=== PATIENT | male | born 1975 | race Caucasian/White ===

== ENCOUNTER 2021-02-20 01:46 | Emergency (ER) | payer BC, OTHER ==
[2021-02-20] MEDS ORDERED: Ketorolac 15 MG/ML SDV IM ONE (02:09)
--- NOTE | 2021-02-20 03:13 | EDM.PDOC ---
ED HPI GENERAL MEDICAL PROBLEM - General Chief Complaint: Back Pain or Injury Stated Complaint: PAIN IN BACK AND HIPS Time Seen by Provider: 02/20/21 02:05 - History of Present Illness INITIAL COMMENTS - FREE TEXT/NARRATIVE: CHIEF COMPLAINT(S): Back pain HISTORY OF PRESENT ILLNESS: This is a 45-year-old man without any significant past medical history who presents to the emergency department with a chief complaint of back pain. The patient states that he is experiencing 8 out of 10 lower back and hip pain which he describes as aching and worse with movement. He denies any radiation of this pain down his legs. He states that this started yesterday and does not know why it started initially. He has not yet tried anything for pain relief. He denies any bowel incontinence, urinary incontinence, saddle anesthesia. He denies any fever or chills. He denies any rash or redness. He denies any headache, trouble walking or trouble speaking. He denies any IV drug use. The pain is exacerbated by movement. There are no relieving factors. REVIEW OF SYSTEMS: Constitutional: Denies fever, chills. Eyes: Denies eye pain Ears, Nose, Mouth, & Throat: Denies earache Cardiovascular: Denies chest pain Respiratory: Denies shortness of breath Gastrointestinal: Denies Nausea, vomiting, diarrhea, hematochezia. Genitourinary: Denies hematuria Skin:Denies a rash MSK: Positive for lower back and hip pain Neurological: Denies blurred vision Psychiatric: Denies depression PAST MEDICAL HISTORY: As per history of present illness and as reviewed below otherwise noncontributory. SURGICAL HISTORY: As per history of present illness and as reviewed below otherwise noncontributory. SOCIAL HISTORY: As per history of present illness and as reviewed below otherwise noncontributory. FAMILY HISTORY: As per history of present illness and as reviewed below otherwise noncontributory. EXAMINATION OF ORGAN SYSTEMS/BODY AREAS: Constitutional: Blood pressure is 124/81, heart rate 85, respiratory rate 16 with an oxygen saturation of 95% on room air. Temperature 36.1 General: Young man who does not appear to be in acute distress Psychiatric: Appropriate mood and affect. Eyes: No scleral icterus or conjunctival erythema ENMT: Moist mucous membranes. No pharyngeal erythema Cardiovascular: Regular, rate, and rhythm. No gallops, murmurs, or rubs. Bilateral upper extremity pulses symmetric and intact. No peripheral edema. No JVD. Respiratory: Lungs clear to auscultation bilaterally. No wheezes, rales, or rhonchi. Gastrointestinal: Soft, non-tender, non-distended. Normoactive bowel sounds Genitourinary: No suprapubic tenderness Musculoskeletal: Normal range of motion. There is bilateral para spinal lumbar tenderness and bilateral gluteus tenderness. No midline lumbar, thoracic or cervical tenderness. Skin: No lesions or abrasions. Neurological: Alert, GCS 15 strength and sensation grossly intact in upper and lower extremities bilaterally MEDICAL DECISION MAKING AND COURSE IN THE ED WITH INTERPRETATION/REVIEW OF DIAGNOSTIC STUDIES: This is a 45-year-old man without any significant past medical history who presents to the emergency department with bilateral paraspinal muscle tenderness and gluteus tenderness. At this time I do believe this is muscle strain/lumbar strain. We will provide the patient with Toradol for pain relief and reevaluate. I do not believe any labs or imaging are indicated. The patient has no red flag symptoms. DDx: Lumbar strain, gluteus strain I did discuss strict return precautions with the patient and his at bedside. He did express understanding and had no further questions. Patient is amenable to discharge. DISPOSITION: The patient was discharged home in stable condition. The patient will follow up with primary care physician in 3 to 5 days CONDITION: Fair PROCEDURES: None FINAL IMPRESSION(S)/DIAGNOSES: 1. Acute musculoskeletal back pain Griffin Hernandez M.D. Bilateral Hip Pain Score (Numeric/FACES): 8 - Related Data Allergies Allergy/AdvReac Type Severity Reaction Status Date / Time amoxicillin Allergy Hives Verified 02/20/21 02:00 Home Meds: Home Meds Ibuprofen 600 mg PO Q6HR #28 tablet 02/20/21 [Rx] methIMAzole [Methimazole] 5 mg PO DAILY 02/20/21 [History] methocarbamoL [Methocarbamol] 1,500 mg PO TID #42 tablet 02/20/21 [Rx] Past Medical History HEENT History: Reports: Impaired Vision Endocrine/Metabolic History: Reports: Hypothyroidism - Infectious Disease History Infectious Disease History: Reports: Chicken Pox, Shingles Social & Family History - Recreational Drug Use Recreational Drug Use: Yes Drug Use in Last 12 Months: Yes Recreational Drug Type: Reports: Marijuana/Hashish Recreational Drug Use Frequency: Socially ED ROS GENERAL - Review of Systems Review Of Systems: See Below ED EXAM, GENERAL - Physical Exam Exam: See Below Course - Vital Signs Last Recorded V/S: Last Vital Signs Temp 36.1 C 02/20/21 02:01 Pulse 85 02/20/21 02:01 Resp 16 02/20/21 02:01 BP 124/81 02/20/21 02:01 Pulse Ox 95 02/20/21 02:01 - Orders/Labs/Meds Meds: Medications Discontinued Medications Generic Name Dose Route Start Last Admin Trade Name Rebecca PRN Reason Stop Dose Admin Ketorolac Tromethamine 15 mg 02/20/21 02:09 02/20/21 02:22 Ketorolac 15 Mg/Ml Sdv IM 02/20/21 02:10 15 mg ONETIME ONE Administration Departure - Departure Time of Disposition: 03:11 Disposition: Home, Self-Care 01 Condition: Fair Clinical Impression: Back strain - Discharge Information Prescriptions: Ibuprofen 600 mg PO Q6HR #28 tablet methocarbamoL [Methocarbamol] 1,500 mg PO TID #42 tablet Instructions: Muscle Strain, Iekz-no-Cigz, Back Injury Prevention Referrals: PCP,None [Primary Care Provider] - Forms: ED Department Discharge Additional Instructions: You were evaluated today on an emergent basis. At this time I do believe that your symptoms are likely due to muscle spasm versus strain. I do recommend that you apply a heating pad 20 minutes 4 times a day and use Tylenol and Motrin alternating around the clock. I recommend that you use Robaxin 3 times a day as prescribed and do the stretches that we had discussed. As discussed if you have any worsening symptoms such as urinating on yourself, defecating on yourself, fever or worsening back pain I would like you to return to the emergency department. Otherwise follow-up with primary care physician in 3 to 5 days for reevaluation Please use: Tylenol 500-1000mg every 6 hours (DO NOT TAKE MORE THAN 4000mg in 1 day) Ibuprofen 400mg-600mg every 6 hours (Take with food as it can cause ulcers, GI upset) Example schedule: 8:00 AM (Tylenol 500-1000mg) 11:00 AM (Ibuprofen 400mg) 2:00 PM (Tylenol 500-1000mg) 5:00 PM (Ibuprofen 400mg) In addition to Tylenol and Motrin you may use over the counter creams such as Voltaren Cream or Lidocaine Cream (Lidoderm) as needed 4 times a day for symptomatic relief. [facility] [address] [place] [address] [facility] [address] [place] [address] The patient is informed of any results of their evaluation and diagnostic workup and all questions are answered. They are given discharge instructions and return precautions. The patient is stable for discharge. The patient states they understand and agree with the plan and that they will return if their symptoms get worse or if they have any new concerns. The following information is given to patients seen in the emergency department who are being discharged to home. This information is to outline your options for follow-up care. We provide all patients seen in our emergency department with a follow-up referral. The need for follow-up, as well as the timing and circumstances, are variable depending upon the specifics of your emergency department visit. If you don't have a primary care physician on staff, we will provide you with a referral. We always advise you to contact your personal physician following an emergency department visit to inform them of the circumstance of the visit and for follow-up with them and/or the need for any referrals to a consulting specialist. The emergency department will also refer you to a specialist when appropriate. This referral assures that you have the opportunity for follow-up care with a specialist. All of these measure are taken in an effort to provide you with optimal care, which includes your follow-up. Under all circumstances we always encourage you to contact your private physician who remains a resource for coordinating your care. When calling for follow-up care, please make the office aware that this follow-up is from your recent emergency room visit. If for any reason you are refused follow-up, please contact the [facility] Emergency Department at and asked to speak to the emergency department charge nurse.
== END 2021-02-20 03:22 | disposition home or self-care (01) ==
LOC: MW.ED 01:46
DX: S39.012A Strain of muscle, fascia and tendon of lower back, initial encounter (principal); Z88.0 Allergy status to penicillin; X58.XXXA Exposure to other specified factors, initial encounter
CPT/HCPCS: 96372; 99283; J1885